=== PATIENT | female | born 1990 | race Two or more races ===

== ENCOUNTER 2023-01-26 15:26 | Outpatient (CLI) | payer OTHER | END 2023-01-26 15:41 | disposition home or self-care (01) | LOC: SONOGRAMA 15:26 | PROVIDERS: ATTEND Obstetrics & Gynecology Gynecology | DX: R10.2 Pelvic and perineal pain (principal) ==

== ENCOUNTER 2023-03-26 16:11 | Outpatient (CLI) | payer OTHER | END 2023-03-26 16:23 | disposition home or self-care (01) | LOC: RAD 16:11 | DX: M25.561 Pain in right knee (principal); M25.562 Pain in left knee ==

== ENCOUNTER 2023-07-25 11:53 | Outpatient (CLI) | payer OTHER | END 2023-07-25 12:02 | disposition home or self-care (01) | LOC: RAD 11:53 | DX: J18.9 Pneumonia, unspecified organism (principal); J01.90 Acute sinusitis, unspecified ==

== ENCOUNTER 2024-05-22 18:27 | Emergency (ER) | payer OTHER ==
[~2024-05-22] VITALS: Ht 165.1 cm; Wt 46.3 kg
[2024-05-22] MEDS ORDERED: LACTOBACILLUS ACIDOPHILUS 1 CAP CAP PO ONE ×2 (19:30→19:37)
[2024-05-22] MEDS ORDERED: 0.9 % SODIUM CHLORIDE 1,000 ML IV ONE (19:30)
[2024-05-22] MEDS ORDERED: ONDANSETRON HCL 2 MG/ML VIAL IV ONE (19:30)
[2024-05-22] MEDS ORDERED: FAMOTIDINE/PF 20 MG/2 ML VIAL IV ONE (19:30)
[2024-05-22] MEDS ORDERED: ONDANSETRON HCL 2 MG/ML VIAL ONE (19:37)
[2024-05-22] MEDS ORDERED: FAMOTIDINE/PF 20 MG/2 ML VIAL ONE (19:38)
[2024-05-22 20:21] LABS: HEMATOCRIT 39.5 % (36.0-45.00); HEMOGLOBIN 13.4 g/dL (12.0-15.00); MEAN CELL VOLUME 85.5 fL (80.00-100.00); PLATELET COUNT 315 K/uL (150-450); RED BLOOD COUNT 4.62 M/uL (4.00-6.00); RED CELL DISTRIBUTION WIDTH 15.9 % (11.5-14.5)
[2024-05-22 20:53] LABS: ALBUMIN 4.5 gm/dL (3.4-5.0); BILIRUBIN TOTAL 0.71 mg/dL (0.3-1.2); CALCIUM 9.6 mg/dL (8.5-10.1); CREATININE SERUM 0.86 mg/dL (0.55-1.02); GFR 74.66; GLOBULINA 4.4 G/DL (2.4-3.5); POTASSIUM 3.1 mEq/L (3.5-5.1); TOTAL PROTEIN 8.9 gm/dL (6.4-8.2)
[2024-05-22] MEDS ORDERED: INTESTINEX680 M1 PO (22:59)
[2024-05-22] MEDS ORDERED: ONDANSETRON HCL4 MG PO (22:59)
[2024-05-22] MEDS ORDERED: PEPCID AC20 MG PO (22:59)
[2024-05-22] MEDS ORDERED: LEVSIN0.125 MG PO (22:59)
== END 2024-05-23 00:42 ==
LOC: ER 18:28
PROVIDERS: Nurse Practitioner Family
DX: R19.7 Diarrhea, unspecified (principal); E86.0 Dehydration; Z88.0 Allergy status to penicillin; Z88.6 Allergy status to analgesic agent; J45.909 Unspecified asthma, uncomplicated; A05.9 Bacterial foodborne intoxication, unspecified; Z20.822 Contact with and (suspected) exposure to COVID-19